=== PATIENT | male | born 1940 | race Caucasian/White ===

== ENCOUNTER 2025-02-17 09:41 | Emergency (ER) | payer OTHER ==
[2025-02-17] MEDS ORDERED: NA CHLORIDE 0.9% 1,000 ML ONE ×2 (09:59→16:42)
[2025-02-17] MEDS ORDERED: ACETAMINOPHEN 500 MG TAB ONE (09:59)
[2025-02-17] MEDS ORDERED: NA CHLORIDE 0.9% 100 ML ONE (09:59)
[2025-02-17] MEDS ORDERED: CEFEPIME 2 GM VIAL ONE (09:59)
[2025-02-17 10:37] LABS: Absolute Basophils 0.1 K/uL (0-0.5); Absolute Lymphocytes (CBC) 1.2 K/uL (0.7-4.9); Absolute Monocytes 0.7 K/uL (0.1-1.3); Absolute Neutrophil 6.6 K/uL (1.8-8.0); Basophils % 0.9 % (0-1.3); Eosinophils % 0.3 % (0-4.4); Hematocrit 28.2 % (39.6-49.0); Hemoglobin 9.2 g/dL (13.6-17.9); Lymphocytes % 13.8 % (15.3-44.8); MCH 25.4 pg (27.0-35.0); MCHC 32.6 g/dL (32.0-36.0); MPV 8.7 fL (7.6-11.3); Monocytes % 8.1 % (3.3-12.3); Neutrophils % 76.9 % (41.7-73.7); Platelets 297 thou/uL (152-406); RBC Red Blood Cell Count 3.62 M/uL (4.33-5.43); Red Cell Distribution Width 18.3 % (12.1-15.2)
[2025-02-17 10:46] LABS: PT Prothrombin Time 13.3 SECONDS (10-13.0); PTT, Activated Partial Thromb 29.6 SECONDS (27.2-37.4); Protime INR 1.18
--- NOTE | 2025-02-17 10:57 | RAD REPORT ---
Procedure: Chest Single View HISTORY: Shortness of breath COMPARISON: 2009 FINDINGS: The lungs appear clear of acute infiltrate. No significant pleural effusion noted. The heart is mildly enlarged. Central venous catheter with its tip in the SVC. IMPRESSION: No acute abnormality is displayed.
[2025-02-17 11:00] LABS: AST/SGOT 20 U/L (15-37); Albumin 2.3 g/dL (3.4-5.0); Albumin/Globulin Ratio 0.5 (1.1-1.8); Alkaline Phosphatase 70 U/L (45-117); Anion Gap 8.5 mEq/L (5.0-15.0); BUN Blood Urea Nitrogen 27 mg/dL (7-18); Bicarbonate 28 mEq/L (21-32); Bilirubin Total 0.3 mg/dL (0.2-1.0); Globulin 4.5 g/dL (2.3-3.5); Glomerular Filtration Rate 59 ml/min (=/>90); Glucose Level 198 mg/dL (74-106); NT PRO-BNP 15513 pg/mL (<450); Potassium 3.5 mEq/L (3.5-5.1); Protein, Total 6.8 g/dL (6.4-8.2); Sodium Level 138 mEq/L (136-145)
[2025-02-17 11:03] LABS: ALT/SGPT < 14 U/L (16-61)
[2025-02-17 11:04] LABS: Troponin High Sensitivity 2727.2 pg/mL (<58.9)
--- NOTE | 2025-02-17 11:24 | RAD REPORT ---
Exam:Hip Left 2 View HISTORY: Left hip pain FINDINGS: Subcapital markedly displaced fracture left femur. No dislocation seen
--- NOTE | 2025-02-17 12:00 | ER ---
Nurse's Notes [facility] Name: Yusef Espinoza Age: 84 yrs Sex: Male : 1940 Arrival Date: 02/17/2025 Time: 09:41 Bed 6 Private MD: Diagnosis: Severe sepsis;Lactic acidosis;NSTEMI;Septic arthritis of left hip Presentation: 02/17 09:44 Chief complaint: EMS states: From [place], sent for fever and high heart rate, ph currently being treated w/ Vancomycin for infection to L hip. Coronavirus screen: Vaccine status: Patient reports receiving the 1st dose of the Covid vaccine. Ebola Screen: No symptoms or risks identified at this time. Initial Sepsis Screen: Does the patient meet any 2 criteria? RR > 20 per min. HR > 90 bpm. Does the patient have a suspected source of infection? No. Patient's initial sepsis screen is negative. Risk Assessment: Do you want to hurt yourself or someone else? Unable to obtain. Onset of symptoms was February 17, 2025. 09:44 Method Of Arrival: EMS: [facility] ph 09:44 Acuity: KASHIF 2 ph Historical: - Allergies: 09:47 Fentanyl; ph - PMHx: 09:47 Dementia; ph - Immunization history:: Adult Immunizations unknown. - Infectious Disease History:: unable to obtain. - Family history:: not pertinent. - Social history:: Smoking status: unknown. Screenin:48 [facility] ED Fall Risk Assessment (Adult) History of falling in the last 3 months, ph including since admission No falls in past 3 months (0 pts) Confusion or Disorientation Yes (5 pts) Intoxicated or Sedated No (0 pts) Impaired Gait Yes (1 pt) Mobility Assist Device Used Yes (1 pt) Altered Elimination Yes (1 pt) Score/Fall Risk Level 3 or more points = High Risk Oriented to surroundings, Maintained a safe environment, Hourly rounding (assess needs \T\ fall precautionary measures) done, Used ambulatory aids as needed (educated on \T\ assisted with). Abuse screen: Denies threats or abuse. Denies injuries from another. Nutritional screening: No deficits noted. Tuberculosis screening: No symptoms or risk factors identified. Assessment: 10:30 General: Appears in no apparent distress. Behavior is quiet. Pain: Unable to use pain ph scale. Patient is disoriented. Neuro: Level of Consciousness is awake, alert. Cardiovascular: Capillary refill < 3 seconds in bilateral fingers Patient's skin is warm and dry. Respiratory: Airway is patent Respiratory effort is labored, Respiratory pattern is tachypnea. GI: Abdomen is round Colostomy site is clean and dry. Ostomy appliance is intact. Derm: Skin is pink, warm \T\ dry. Musculoskeletal: Range of motion: limited in lower extremities. 12:00 Reassessment: Patient appears in no apparent distress at this time. Patient and/or ph family updated on plan of care and expected duration. Pain level reassessed. 14:00 Reassessment: Patient appears in no apparent distress at this time. Patient and/or ph family updated on plan of care and expected duration. Pain level reassessed. 17:00 Reassessment: Attempted to call report to [facility], was told that due to NSTEMI pt could ph not go to that floor, will need to be assigned another room. 17:40 Reassessment: Report called to VEE Mosqueda at [facility]. ph 17:50 Reassessment: Contacted pt's son to inform him of transfer to [facility]. ph 18:19 Reassessment: EMS at bedside, pt transferred. ph Vital Signs: 09:44 BP 179 / 73; Pulse 122; Resp 24; Temp 100.8(A); Pulse Ox 91% on R/A; Weight 70.31 kg; ph 10:30 BP 176 / 86; Pulse 115; Resp 28; Pulse Ox 96% on 2 lpm NC; ph 11:30 BP 168 / 74; Pulse 105; Resp 28; Pulse Ox 98% on 2 lpm NC; ph 12:48 BP 186 / 85; Pulse 101; Resp 20; Temp 99.8; Pulse Ox 98% on 2 lpm NC; ph 12:56 BP 183 / 75; Pulse 101; Resp 22; Pulse Ox 98% on 2 lpm NC; ph 14:00 BP 186 / 85; Pulse 102; Resp 22; Pulse Ox 95% on 2 lpm NC; ph 15:00 BP 188 / 93; Pulse 124; Resp 22; Pulse Ox 94% on 2 lpm NC; ph 15:53 BP 180 / 76; Pulse 133; Resp 22; Temp 101.3; Pulse Ox 94% on 2 lpm NC; ph 16:50 BP 188 / 93; Pulse 125; Resp 22; Temp 100.5; Pulse Ox 100% on 2 lpm NC; ph 17:18 BP 177 / 86; Pulse 92; Resp 22; Temp 99.8; Pulse Ox 98% on 2 lpm NC; ph Vitals: 12:48 Cardiac Rhythm Assessment Sinus tach. ph ED Course: 09:43 Patient arrived in ED. bd 09:44 Jason Good MD is Attending Physician. rt 09:47 Triage completed. ph 10:20 Initial lab(s) drawn, by me, sent to lab. First set of blood cultures drawn by me. ph Inserted saline lock: 22 gauge in right hand, using aseptic technique. Blood collected. Flushed with 10 mL NS. 10:36 Annie Payne, VEE is Primary Nurse. ph 10:48 Chest Single View XRAY In Process Unspecified. EDMS 10:48 Hip Left 2 View XRAY In Process Unspecified. EDMS 11:02 Notified ED physician of a critical lab result(s). lactate 3.1. ll1 11:02 Arm band placed on Patient placed in an exam room. ph 11:04 Notified ED physician of a critical lab result(s). troponin 2727.2. ll1 11:30 Patient has correct armband on for positive identification. Placed in gown. Bed in low ph position. Side rails up X2. amusement park worker on. Pulse ox on. NIBP on. 11:32 Second set of blood cultures drawn by me. ll1 11:38 EKG done, by ED staff, reviewed by Jason Good MD. ll1 11:38 Warm blanket given. ll1 12:51 initiated transfer to [facility], was told by Ashely that transfers are on hold at this time. Dr Good was informed. 13:58 CT Chest, Abdomen, Pelvis - W/Contrast In Process Unspecified. EDMS 14:35 pt denied at [facility] due to being on transfer hold at this time, per Aileen Lee. bd 15:05 initiated transfer to [facility]. bd 16:38 pt accepted in transfer to [facility] rm [id number] Mack admin approval given by no Parish rn. 16:47 Lab(s) recollected, by ED staff, sent to lab. Inserted saline lock: 22 gauge in left ph forearm, using aseptic technique. Blood collected. Flushed with 10 mL NS. 18:16 No provider procedures requiring assistance completed. Patient transferred, IV remains ph in place. Administered Medications: 10:37 Drug: NS 0.9% IV 1000 ml IV at 1000 ml once; to be given as a bolus over 60 minutes ph Route: IV; Rate: 1000 ml; Site: left hand; 11:40 Follow up: Response: No adverse reaction; IV Status: Completed infusion; IV Intake: ph 1000ml 11:53 Drug: Cefepime IVPB 2 grams IVPB at 200 ml/hr once over 30 mins; (mix in NS 100 mL) ph Route: IVPB; Rate: 200 ml/hr; Infused Over: 30 mins; Site: right hand; 12:30 Follow up: Response: No adverse reaction; IV Status: Completed infusion ph 12:56 Not Given (Other Intervention Used): [id number] mg PO once ph 15:56 Drug: Acetaminophen PO 1000 mg PO once Route: PO; ph 17:00 Follow up: Response: No adverse reaction; Temperature is decreased ph 16:47 Drug: NS 0.9% IV 1000 ml IV at 125 ml/hr Per protocol; to be given as a bolus over 60 ph minutes Route: IV; Rate: 125 ml/hr; Site: left forearm; 18:17 Follow up: Response: No adverse reaction; IV Status: Infusion continued upon transfer ph 18:00 Drug: Heparin (RI-Bolus No thrombolytic) - HEParin IVP 60 units/kg IVP once; Max 5000 ld1 units {Co-Signature: geoffrey (Annie Payne RN).} Route: IVP; Site: left forearm; 18:17 Follow up: Response: No adverse reaction ph 18:00 Drug: Heparin (RI Drip) 12 units/kg/hr - ([place] [address] units, D5W IV 500 ml) IV at ld1 calculated rate Per protocol; Max initial rate 1000 units/hr {Co-Signature: geoffrey (Annie Payne RN).} Route: IV; Rate: calculated rate; Site: left forearm; 18:17 Follow up: Response: No adverse reaction; IV Status: Infusion continued upon transfer ph 18:17 Not Given (Duplicate Order): [id number] mg PO once ph Medication: 18:16 VIS not applicable for this client. ph Intake: 11:40 IV: 1000ml; Total: 1000ml. ph Outcome: 11:59 ER care complete, transfer ordered by . rt 18:18 Transferred by ground EMS [facility]. to [facility], [facility], Transfer ph form completed. X-rays sent w/ patient. 18:18 Condition: stable 18:35 Patient left the ED. ph Signatures: Dispatcher [employer] EDMS Anna Ellis Patricia, RN RN ph Steve Kamara RN RN 1 Aminah Beltran RN RN ld1 Jason Good MD MD rt Hall, Patricia RN ph Corrections: (The following items were deleted from the chart) 09:52 09:47 PMHx: None; ph ph 15:59 15:53 Pulse 133bpm; Resp 22bpm; Pulse Ox 94% 2 lpm Nasal Cannula; Temp 101.3F; ph ph
--- NOTE | 2025-02-17 12:00 | EDPHYS ---
Physician Documentation [facility] Name: Yusef Espinoza Age: 84 yrs Sex: Male : 1940 Arrival Date: 02/17/2025 Time: 09:41 Bed 6 Private MD: ED Physician Jason Good HPI: 02/17 09:53 This 84 yrs old Male presents to ER via EMS with complaints of Fever. rt 09:53 History is limited due to patient with advanced dementia and is nonverbal. Patient rt presents to the ED from a long-term with fever, tachycardia. 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 States that patient was some less interactive today. No further history could be obtained, symptoms are moderate in severity, no other aggravating or alleviating factors.. Historical: - Allergies: 09:47 Fentanyl; ph - PMHx: 09:47 Dementia; ph - Immunization history:: Adult Immunizations unknown. - Infectious Disease History:: unable to obtain. - Family history:: not pertinent. - Social history:: Smoking status: unknown. ROS: 09:53 Constitutional: rt 09:53 Constitutional: Positive for fever, 09:53 Unable to obtain ROS due to baseline dementia, Exam: 09:53 Head/Face: Normocephalic, atraumatic. Chest/axilla: Normal chest wall appearance and rt motion. Nontender with no deformity. No lesions are appreciated. Cardiovascular: Regular rate and rhythm with a normal S1 and S2. No gallops, murmurs, or rubs. Normal PMI, no JVD. No pulse deficits. Skin: Warm, dry with normal turgor. Normal color with no rashes, no lesions, and no evidence of cellulitis. 09:53 Constitutional: The patient appears Nonverbal, chronically ill-appearing 09:53 Respiratory: Coarse breath sounds diffusely, mild respiratory distress, 09:53 Musculoskeletal/extremity: Contracture noted, the surgical wound to the left hip appears clean dry and intact without surrounding erythema, no purulent discharge. 13:21 ECG was reviewed by the Attending Physician. rt Vital Signs: 09:44 BP 179 / 73; Pulse 122; Resp 24; Temp 100.8(A); Pulse Ox 91% on R/A; Weight 70.31 kg; ph 10:30 BP 176 / 86; Pulse 115; Resp 28; Pulse Ox 96% on 2 lpm NC; ph 11:30 BP 168 / 74; Pulse 105; Resp 28; Pulse Ox 98% on 2 lpm NC; ph 12:48 BP 186 / 85; Pulse 101; Resp 20; Temp 99.8; Pulse Ox 98% on 2 lpm NC; ph 12:56 BP 183 / 75; Pulse 101; Resp 22; Pulse Ox 98% on 2 lpm NC; ph 14:00 BP 186 / 85; Pulse 102; Resp 22; Pulse Ox 95% on 2 lpm NC; ph 15:00 BP 188 / 93; Pulse 124; Resp 22; Pulse Ox 94% on 2 lpm NC; ph 15:53 BP 180 / 76; Pulse 133; Resp 22; Temp 101.3; Pulse Ox 94% on 2 lpm NC; ph 16:50 BP 188 / 93; Pulse 125; Resp 22; Temp 100.5; Pulse Ox 100% on 2 lpm NC; ph 17:18 BP 177 / 86; Pulse 92; Resp 22; Temp 99.8; Pulse Ox 98% on 2 lpm NC; ph MDM: 09:44 Medical Screening Exam initiated rt 18:38 Differential diagnosis: Septic arthritis, sepsis, altered mental status. Data reviewed: rt vital signs, nurses notes, lab test result(s), EKG, radiologic studies. Consideration of Admission/Observation Patient requires transfer for orthopedic care, attempted to transfer [place] to [place] where [place] at, they declined due to capacity.. Management of patient was discussed with the following: Discussed with accepting orthopedist, hospitalist at [facility]. I considered the following discharge prescriptions or medication management in the emergency department Medications were administered in the Emergency Department. See MAR After the patient's initial troponin returned elevated, discussed with cardiology, recommended trending troponins, when repeat came back showing about a doubling of the troponin, heparin drip was initiated.. Independent interpretation of the following test(s) in the Emergency Department CT Scan: My interpretation is Fluid with gas seen on the left hip on my interpretation of CT scan images. Care significantly affected by the following chronic conditions: A-fib, dementia. Counseling: I had a detailed discussion with the patient and/or guardian regarding the historical points, exam findings, and any diagnostic results supporting the discharge/admit diagnosis, lab results, radiology results, the need to transfer to another facility. Response to treatment: the patient's symptoms have mildly improved after treatment. 02/17 09:46 Order name: Blood Culture Adult (2) rt 02/17 09:46 Order name: CBC with Diff; Complete Time: 11:23 rt 02/17 09:46 Order name: CMP; Complete Time: 11:23 rt 02/17 09:46 Order name: Lactate w/ 2H reflex if indic.; Complete Time: 11:23 rt 02/17 09:46 Order name: Protime (+inr); Complete Time: 11:23 rt 02/17 09:46 Order name: Ptt, Activated; Complete Time: 11:23 rt 02/17 09:46 Order name: BNP; Complete Time: 11:23 rt 02/17 09:46 Order name: Troponin High Sensitivity; Complete Time: 11:23 rt 02/17 11:06 Order name: Ghost Lactate-NO COLLECT Timer; Complete Time: 13:02 EDMS 02/17 13:44 Order name: Lactate Sepsis 2 HR Follow-up; Complete Time: 13:56 EDMS 02/17 15:13 Order name: Troponin High Sensitivity; Complete Time: 17:27 rt 02/17 09:46 Order name: Chest Single View XRAY; Complete Time: 11:23 rt 02/17 09:46 Order name: Hip Left 2 View XRAY; Complete Time: 11:25 rt 02/17 13:09 Order name: CT Chest, Abdomen, Pelvis - W/Contrast; Complete Time: 14:55 rt 02/17 09:46 Order name: Accucheck; Complete Time: 10:37 rt 02/17 09:46 Order name: Cardiac monitoring; Complete Time: 10:37 rt 02/17 09:46 Order name: EKG - Nurse/Tech; Complete Time: 11:53 rt 02/17 09:46 Order name: IV Saline Lock - Large Bore; Complete Time: 10:37 rt 02/17 09:46 Order name: Labs collected and sent; Complete Time: 10:37 rt 02/17 09:46 Order name: O2 Per Protocol; Complete Time: 09:48 rt 02/17 09:46 Order name: O2 Sat Monitoring; Complete Time: 09:48 rt 02/17 09:46 Order name: Vital Signs; Complete Time: 09:48 rt 02/17 15:59 Order name: Labs - recollect needed: recollect trop; Complete Time: 16:47 bd EC:21 Rate is 105 beats/min. Rhythm is regular, Sinus tachycardia with No ectopy, Right rt bundle branch block. Left axis deviation noted. [place] interval is normal. QRS interval is normal. QT interval is normal. No Q waves. Administered Medications: 10:37 Drug: NS 0.9% IV 1000 ml IV at 1000 ml once; to be given as a bolus over 60 minutes ph Route: IV; Rate: 1000 ml; Site: left hand; 11:40 Follow up: Response: No adverse reaction; IV Status: Completed infusion; IV Intake: ph 1000ml 11:53 Drug: Cefepime IVPB 2 grams IVPB at 200 ml/hr once over 30 mins; (mix in NS 100 mL) ph Route: IVPB; Rate: 200 ml/hr; Infused Over: 30 mins; Site: right hand; 12:30 Follow up: Response: No adverse reaction; IV Status: Completed infusion ph 12:56 Not Given (Other Intervention Used): [id number] mg PO once ph 15:56 Drug: Acetaminophen PO 1000 mg PO once Route: PO; ph 17:00 Follow up: Response: No adverse reaction; Temperature is decreased ph 16:47 Drug: NS 0.9% IV 1000 ml IV at 125 ml/hr Per protocol; to be given as a bolus over 60 ph minutes Route: IV; Rate: 125 ml/hr; Site: left forearm; 18:17 Follow up: Response: No adverse reaction; IV Status: Infusion continued upon transfer ph 18:00 Drug: Heparin ([place]I-Bolus No thrombolytic) - HEParin IVP 60 units/kg IVP once; Max 5000 ld1 units {Co-Signature: ph (Annie Payne RN).} Route: IVP; Site: left forearm; 18:17 Follow up: Response: No adverse reaction ph 18:00 Drug: Heparin ([place] Drip) 12 units/kg/[place] - ([place] [address] units, D5W IV 500 ml) IV at ld1 calculated rate Per protocol; Max initial rate 1000 units/hr {Co-Signature: ph (Annie Payne RN).} Route: IV; Rate: calculated rate; Site: left forearm; 18:17 Follow up: Response: No adverse reaction; IV Status: Infusion continued upon transfer ph 18:17 Not Given (Duplicate Order): [id number] mg PO once ph Disposition Summary: 02/17/25 11:59 Transfer Ordered Notes: Reason: Private Physician at Transferring Hospital rt Condition: Fair rt Problem: new rt Symptoms: are unchanged rt Transfer Location: [facility](02/17/25 14:57) rt Accepting Physician: (02/17/25 18:35) ph Diagnosis - Severe sepsis rt - Lactic acidosis rt - NSTEMI rt - Septic arthritis of left hip rt Forms: - Medication Reconciliation Form rt - SBAR form rt Critical care time excluding procedures: 18:38 Critical care time: Bedside Care: 30 minutes, Consultation: 5 minutes. Total time: 35 rt minutes Signatures: Dispatcher [employer] EDAnna Palmer Patricia, RN RN ph Beltran, Aminah RN RN ld1 Jason Good MD MD rt Annie Payne RN ph Corrections: (The following items were deleted from the chart) 09:46 09:46 BLOOD CULTURE*+BA.LAB.BRZ ordered. EDMS EDMS 09:46 09:46 CBC+H.LAB.BRZ ordered. EDMS EDMS 09:46 09:46 COMPREHENSIVE METABOLIC PANEL+C.LAB.BRZ ordered. EDMS EDMS 09:46 09:46 LACTATE+C.LAB.BRZ ordered. EDMS EDMS 09:46 09:46 PROTIME (+INR)+COAG.LAB.BRZ ordered. EDMS EDMS 09:46 09:46 PTT, ACTIVATED+COAG.LAB.BRZ ordered. EDMS EDMS 09:46 09:46 PROBNP+C.LAB.BRZ ordered. EDMS EDMS 09:46 09:46 Troponin High Sensitivity+C.LAB.BRZ ordered. EDMS EDMS 09:46 09:46 Chest Single View+RAD.RAD.BRZ ordered. EDMS EDMS 09:47 09:47 Hip Left 2 View+RAD.RAD.BRZ ordered. EDMS EDMS 09:52 09:47 PMHx: None; ph ph 14:57 11:59 rt rt 14:57 11:59 [facility] rt rt 18:35 14:57 rt ph
--- NOTE | 2025-02-17 14:53 | RAD REPORT ---
EXAM: Chest Abdomen Pelvis W Cont CLINICAL INDICATION: Male, 84 years FEVER TECHNIQUE: CT chest, abdomen and pelvis was performed, with IV contrast, as per department protocol. Axial, sagittal and coronal reconstructions were obtained. One or more of the following dose reduction techniques were used: Automated exposure control, adjustment of the mA and/or kV according to the patient size, and/or iterative reconstruction. Unless otherwise specified, incidental findings do not require dedicated imaging follow-up. [id number]. COMPARISON: Same-day chest x-ray FINDINGS: ---THORAX--- LOWER NECK AND CHEST WALL: Visualized thyroid gland and soft tissues are normal. MEDIASTINUM AND LYMPH NODES: No mediastinal mass or fluid collection. Normal size mediastinal, hilar, and axillary lymph nodes. THORACIC AORTA: No thoracic aortic aneurysm. Atherosclerotic changes are present. PULMONARY ARTERIES: Caliber is within normal limits. HEART: Normal heart size. Moderate coronary artery calcifications.No significant pericardial effusion . LUNGS AND AIRWAYS: Mild bronchial wall thickening with mucoid impacted right lower lobe airways. Scat tered areas of mild micronodularity. Scatttered 4 mm and smaller pulmonary nodules noted which are of doubtful significance and do not require follow-up. PLEURA: No pleural effusion. No pneumothorax. ---ABDOMEN/PELVIS--- UPPER GI: No significant abnormality. LIVER: No significant focal abnormality. GALLBLADDER/BILE DUCTS: No biliary ductal dilatation.? PANCREAS: 2.2 cm cystic lesion at the pancreatic body. No pancreatic duct dilatation. SPLEEN: Unremarkable. ADRENALS: No adrenal masses. KIDNEYS AND URETERS: No hydronephrosis.No suspicious renal mass.No renal calculi. ABDOMINAL AORTA AND OTHER VESSELS: Moderate atherosclerotic changes without aortic aneurysm. PERITONEUM: No abnormal free fluid. No free air. LYMPH NODES: No pathologic lymphadenopathy. 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 SMALL BOWEL/COLON: Small bowel has normal course and caliber. No colonic wall thickening or pericolon ic inflammatory changes.Status post abdominoperineal resection. URINARY BLADDER: Circumferential bladder wall thickening. Stone debris versus contrast in the bladder . REPRODUCTIVE ORGANS: No pathologic process. ---COMBINED--- MUSCULOSKELETAL: Destructive changes at the left hip with left hip effusion containing gas.. Absent f emoral head with possible antibiotic spacer present. There is some fluid and gas within the medullary cavity of the left femur. ADDITIONAL FINDINGS: None. IMPRESSION: 1. Large gas containing left hip effusion with destructive changes suspicious for osteomyelitis and s eptic joint. THIS REPORT CONTAINS FINDINGS THAT MAY BE CRITICAL TO PATIENT CARE. The emergent findings were communicated to Dr. Good on 02/17/2025 2:50 PM. 2. Mild right lower lobe nodularity could reflect mild pneumonitis secondary to aspiration. 3. 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 Consider 12 month follow-up MRCP. 4. Bladder wall thickening with possible stone debris versus contrast in the bladder. Correlate with urinalysis to exclude infection.
[2025-02-17] MEDS ORDERED: HEPARIN 5000 UNIT/ML 1 ML VIAL ONE (17:54)
[2025-02-17] MEDS ORDERED: HEPARIN/D5W 25,000 UNIT/500 ML BAG IV ONE (17:55)
[2025-02-17 19:34] VITALS: BP 177/86; TEMP 99.8; O2SAT 98
== END 2025-02-17 18:35 | disposition short-term general hospital (02) ==
LOC: ER 09:41
DX: M00.852 Arthritis due to other bacteria, left hip (principal); R65.20 Severe sepsis without septic shock; I21.4 Non-ST elevation (NSTEMI) myocardial infarction; E87.20 Acidosis, unspecified
CPT/HCPCS: 87040 ×2; 85025; 36415; 85610; 83605 ×2; 85730; 84484 ×2; 80053; 83880; 71260; 74177; 71045; 73502; Q9967; J1644; J0692; J7030 ×2; 87205; 93005